=== PATIENT | male | born 1950 | race Caucasian/White ===

== ENCOUNTER 2018-02-23 06:12 | Inpatient (IN) | payer MEDICARE, OTHER ==
[~2018-02-23 06:12] MED LIST: MORPHINE SULFATE 15 MG TABLET.SA PO PRN; ROPIVACAINE HCL/PF 100 MG, EPINEPHrine 0.2 MG, KETOROLAC TROMETHAMINE 30 MG in NORMAL S... IJ PRN; TRANEXAMIC ACID 1,000 MG in NORMAL SALINE 100 ML IV PRN; ceFAZolin SODIUM 1 GM VIAL IV PRN
[2018-02-23] MEDS: RINGER'S SOLUTION,LACTATED 1,000 ML IV PRN ×2 (07:06→09:24)
--- NOTE | 2018-02-23 07:23 | ANES ---
Anesthesia Pre Procedure Eval Vitals/Labs: Last Vital Signs Temp 36.9 C 02/23/18 06:26 Pulse 77 02/23/18 06:26 Resp 16 02/23/18 06:26 BP 144/83 02/23/18 06:26 Pulse Ox 97 02/23/18 06:26 HOME MEDICATIONS acetaminophen 500 mg tablet 1,000 mg PO BID PRN tab 02/01/18 [Last Taken Unknown] amlodipine 5 mg tablet 5 mg PO DAILY 02/01/18 [Last Taken 02/23/18 05:30] losartan 100 mg-hydrochlorothiazide 12.5 mg tablet 1 tab PO DAILY 02/01/18 [Last Taken 02/23/18 05:30] metformin 500 mg tablet 500 mg PO BID 02/01/18 [Last Taken Unknown] metoprolol succinate ER 100 mg tablet,extended release 24 hr 100 mg PO DAILY 02/01/18 [Last Taken 02/23/18 05:30] pravastatin 40 mg tablet 40 mg PO DAILY 02/01/18 [Last Taken Unknown] Allergies/Adverse Reactions: Allergies Allergy/AdvReac Type Severity Reaction Status Date / Time terbinafine [From Lamisil] Allergy Intermediate Hives Verified 02/23/18 06:29 - Planned Procedure Planned Procedure: Arthroplasty Total Hip Cement/Non-Cement Medication List Reviewed:: Yes Allergies Verified: Yes Medical History (Last Reviewed 02/23/18 @ 07:22 by Tomy San CRNA) Diabetes Onset Date: Unknown Hypercholesterolemia Onset Date: Unknown Hypertension Onset Date: Unknown Surgical History (Last Reviewed 02/23/18 @ 07:22 by Tomy San CRNA) History of cataract extraction Onset Date: Unknown History of colonoscopy Onset Date: 12/2017 History of hernia surgery Onset Date: 1996 Status post total hip replacement, right Onset Date: 08/2016 Family History (Last Reviewed 02/23/18 @ 07:22 by Tomy San CRNA) Mother Cancer Sister Cancer Breast cancer Father - Family Anesthesia History Family History:: no untoward family reactions to anesthesia - Airway/Neck/Teeth Within Normal Limits:: Yes Teeth Condition: Intact Neck Exam: full range of motion, normal alignment Mallampatti Score: 2 Thyromental (T-M) distance: > 6 cm Mandibulo Hyoid distance: > 3 cm - Respiratory Respiratory: lungs clear, no respiratory distress Smoking Status: Former smoker Sleep Apnea currently treated: No Sleep Apnea by current assessment: No - Cardiovascular Patient History - Cardiac/Respiratory: Hypertension, Hyperlipidemia Tolerates Activity: Good Heart Sounds: S1 & S2, Regular - Anesthesia Assessment and Plan ASA Class: PS, II Anesthesia Type Plan: Spinal Planned difficult intubation/equipment available: No
[2018-02-23] MEDS ORDERED: ONDANSETRON HCL/PF 2 MG/ML VIAL IV PRN (09:38)
[2018-02-23] MEDS ORDERED: diphenhydrAMINE HCL 50 MG/ML VIAL IV PRN (09:38)
[2018-02-23] MEDS ORDERED: MAG HYDROX/ALUMINUM HYD/SIMETH 30 ML UDC PO PRN (09:38)
[2018-02-23] MEDS ORDERED: MAGNESIUM HYDROXIDE 30 ML UDC PO PRN (09:38)
[2018-02-23] MEDS ORDERED: ACETAMINOPHEN 500 MG TABLET PO PRN (09:38)
[2018-02-23] MEDS ORDERED: RINGER'S SOLUTION,LACTATED 1,000 ML IV PRN (09:38)
[2018-02-23] MEDS ORDERED: MORPHINE SULFATE 2 MG/ML DISP.SYRIN IV PRN (09:38)
--- NOTE | 2018-02-23 09:38 | OR ---
Operative Report - Dictated Report Narrative: Date: 02/23/2018 Preoperative diagnosis: Left hip degenerative joint disease. Postoperative diagnosis: Left hip degenerative joint disease. Procedure: Left Total hip arthroplasty. Surgeon: Carloz Trent M.D. Supervisor Plate Pasting: Jesus Fine PA-C (Jesus provided an essential set of skilled knowledgeable specialized skills that assisted with positioning, retraction, instrumentation, manipulation, closure of wounds, and dressings) Anesthesia: Spinal and local periarticular joint injection. Complications: None Specimens: Bone for disposal. Estimated blood loss: 100 milliliters. Retained implants: Depuy [place] size 7 femoral stem high offset. Size 56 millimeter outside diameter 3-hole Tillson Gription acetabular cup. 56 millimeter outside by 40 millimeter inside diameter highly cross-linked acetabular liner. 401 millimeter diameter 1.5 millimeter ceramic femoral head. Cancellous 6.5mm screw 30 millimeter length Indications: Mr. Lentz is a 67-year-old gentleman who has had long-standing left hip pain and arthrosis. This patient was followed in my clinic for period of time with significant complaints of left hip pain consistent with arthritic changes. He failed conservative measures including but not limited to activity modification, passage of time, medications, and other conservative measures. Patient wished to proceed with surgical treatment. The risks, benefits, and alternatives were discussed in clinic. The risks of , blood clots, bleeding, infection, nerve/tendon blood vessel/ injury, malposition of components, dislocation and/or instability of joint, intraoperative fracture, postoperative limited range of motion, persistent pain, failure of components, and need for additional procedures. Patient wished to proceed. Consent was obtained after answering all questions. Procedure: After marking the correct extremity on the floor, the patient was taken to the operating room. A timeout was performed. IV antibiotics consisting of Ancef were administered prior to the procedure. A spinal anesthetic was induced by anesthesia. A Navas catheter was inserted. The patient was then transitioned to a lateral position on a well-padded pegboard. An axillary roll was placed. The head was in neutral position. The non-oper ative down leg was well-padded with SCD and NALDO hose in place. The arms were supported and padded to protect from any undue pressure on the bony prominences and nerves. A well-padded anterior and posterior pelvic and chest posts were secured in order to maintain a stable position of the pelvis. This was placed so that the pelvis was perpendicular to the floor. The body was in line with the pelvis. Once it was felt that we had protected all the bony prominences and the patient was well secured with a safety belt as well, the leg was pre- scrubbed with alcohol, prepped and draped in a standard sterile fashion. A standard anterior lateral hip incision was marked out over the greater trochanter. Ioban drapes were then placed. The skin incision was then made. Sharp dissection with a scalpel utilizing cautery for hemostasis was carried out down to the gluteus and iliotibial band fascia. This was split in line with the skin incision. The greater trochanter bursa was excised. The anterior and posterior margins of the abductor tendon were identified. The anterior 1/2-1/3 of the tendon was tagged and reflected off the greater trochanter leaving a sleeve of tendon for repair at the completion of the case. This exposed the underlying hip joint capsule. A limb length stitch was placed in the skin and referencedd off a andreia on the greater trochanter for evaluation of intraope rative limb lengths. An inverted T-type capsulotomy was made extending this up to the brim of the acetabulum. Using Homans to assist with elevation of the soft tissues off the anterior, superior, and inferior aspects of the femoral neck, the hip was then placed in a figure 4 position and the femoral head was dislocated. With the leg in an externally rotated and adducted position, the cutting flag was utilized in order to andreia for a standard femoral neck cut approximately a fingerbreadth above the level of the lesser trochanter. This was done with reference to pre-operative films and overall alignment. This was done while protecting the surrounding soft tissues with Homans. The femoral head was then removed and sized for guidance on preparation of the acetabulum. It was noted that there was loss of articular cartilage on both the femoral head and weightbearing portions of the acetabulum. We then returned the leg to the table and turned our attention to the acetabulum. While protecting the surrounding soft tissues, the labrum and remaining tissue in the fovea were excised using a scalpel and cautery. A series of reamers up to size 56 millimeter were utilized to prepare the acetabulum. The final reamer had good purchase and exposed the bleeding subchondral bone. The acetabulum was then thoroughly irrigated ensuring that all bony and cartilaginous materials were removed, and the final acetabular shell was impacted into place. This was placed in approximately 45 degrees of abduction and 20 degrees of anteversion utilizing the outrigger and body axis for alignment. This had a good press fit. 1 6.5mm cancellous screw was placed in the superior posterior quadrant of the acetabulum. The shell was then thoroughly irrigated and the final polyethylene was impacted into place ensuring that it seated completely. This was then protected with a sponge while we returned our attention to the femur. With the leg in a figure 4 position, utilizing Homans for soft tissue protection, a box cutting osteotome, followed by Charnley awl, followed by serial reamers and broaches were utilized in order to prepare the femur. It was found that a size 7 broach gave good axial and rotational stability. The calcar reamer was utilized in order to clean up the cut edges. The proximal femur was visualized to ensure that there were no signs of fracture. A series of heads an d necks were trialed. It was found that a high offset neck and a + 1.5 femoral head gave good overall stability. There was minimal longitudinal instability. With the leg in the position of sleep, the femoral head was well covered. Hip range of motion was able to reach full extension and external rotation to greater than 75 degrees prior to impingement along the posterior acetabulum. The hip was able to be flexed to greater than 90 degrees with internal rotation greater than 60 degrees prior to anterior impingement. The limb lengths were near equal based on comparison to the contralateral side and the prior placed limb length stitch. At this point it was felt these were the appropriately sized femoral components as well as neck and femoral head. The trial implants were removed. The femur was thoroughly irrigated. The final implants were impacted into place, and the hip was reduced. After ensuring that there was no damage to the proximal femur, the standard periarticular joint injection of ropivacaine, Toradol, and epinephrine were injected into the joint capsule and surrounding soft tissues. Anesthesia then administered intravenous tranexamic acid. The capsule was repa ired with a single interrupted #1 Vicryl. The abductor tendon was repaired to the greater trochanter utilizing #5 Ethibond through drill holes. This was oversewn with #1 Vicryl. The fascia was closed with interrupted #1 Vicryl. The wounds were thoroughly irrigated as we closed in layers. The deep and subcutaneous fat layers were closed with 0 and 3-0 Vicryl respectively. The subcutaneous tissue was closed with a running 3-0 Vicryl and the skin with leslie. All sponge, needle, blade, and instrument counts were correct prior to closing the wounds. Sterile dressings consisting of Xeroform, 4 x 4's, and tape were applied. The patient was awoken and transferred to her hospital bed and then to the postanesthesia care unit in stable condition. Postoperative condition: The plan is to admit to the medical/surgical inpatient floor postoperatively. There will be a projected 1 to 3 day hospital stay. Postoperatively 24 hours of IV antibiotics, pain control, physical therapy, occupational therapy, and medical comanagement will be utilized. Patient will be weightbearing as tolerated with anterior hip precautions. Postoperative films will be obtained in the recovery room.
--- NOTE | 2018-02-23 10:23 | ANES ---
Post Anesthesia Discharge - Transfer of Care Transfer of Care handoff given to nurse: Yes - Discharge from PACU Discharge from PACU when meets criteria: Yes
[2018-02-23] MEDS: KETOROLAC TROMETHAMINE 15 MG/ML VIAL IV SCH ×3 (10:43→21:04)
[2018-02-23] MEDS: ceFAZolin SODIUM 1 GM in DEXTROSE 5 % IN WATER 100 ML IV SCH ×6 (11:50→23:20)
[2018-02-23] MEDS: oxyCODONE HCL/ACETAMINOPHEN 1 TAB TABLET PO PRN (14:05)
[2018-02-23] MEDS: metFORMIN HCL 500 MG TABLET PO SCH (17:21)
--- NOTE | 2018-02-23 18:46 | ANES ---
Post Anesthesia Assessment - Vital Signs Vitals: Last Vital Signs Temp 36.6 C 02/23/18 16:23 Pulse 82 02/23/18 16:23 Resp 16 02/23/18 16:23 BP 162/92 H 02/23/18 16:23 Pulse Ox 99 02/23/18 16:23 Airway Patency: Normal - Mental Status Level Of Consciousness: Awake - Pain Level Pain Score: 0 - N/V Assessment Nausea/Vomiting Presence: None Dehydration:: No
[2018-02-23] MEDS: MORPHINE SULFATE 15 MG TABLET.SA PO SCH (21:03)
[2018-02-23] MEDS: SIMVASTATIN 20 MG TABLET PO SCH (21:03)
[2018-02-23] MEDS: SENNOSIDES/DOCUSATE SODIUM 1 TAB TABLET PO SCH (21:04)
[2018-02-23] MEDS: ZOLPIDEM TARTRATE 5 MG TABLET PO PRN (23:18)
[2018-02-24] MEDS: oxyCODONE HCL/ACETAMINOPHEN 1 TAB TABLET PO PRN ×2 (01:57→14:12)
[2018-02-24] MEDS: KETOROLAC TROMETHAMINE 15 MG/ML VIAL IV SCH ×4 (03:13→20:49)
[2018-02-24 06:17] LABS: Hematocrit 31.8 % (42.0-52.0); Hemoglobin 10.9 gm/dL (13.5-18.0); Mean Cell Volume 97.8 fl (78-100); Mean Corpuscular Hemoglobin 33.5 pg (27-31); Mean Corpuscular Hgb Conc 34.3 g/dl (32-36); Mean Platelet Volume 9.7 fl (8-11.3); Platelet Count 172 K/mm3 (150-450); Red Blood Count 3.25 M/mm3 (4.7-6.0); Red Cell Distribution Width 13.1 % (11.5-14.0); White Blood Count 5.6 K/mm3 (4.0-10.5)
[2018-02-24 06:28] LABS: Anion Gap 12.1 mmol/L (6.8-13.8); BUN/Creatinine Ratio 16.2 (9.0-21.6); Calcium * 8.6 mg/dL (7.9-10.9); Carbon Dioxide 27.2 mmol/L (24-32.6); Potassium 4.3 mmol/L (3.4-4.6)
[2018-02-24] MEDS: LOSARTAN POTASSIUM 50 MG TABLET PO SCH (08:21)
[2018-02-24] MEDS: MORPHINE SULFATE 15 MG TABLET.SA PO SCH ×2 (08:21→20:48)
[2018-02-24] MEDS: METOPROLOL SUCCINATE 100 MG TABLET.SA PO SCH (08:21)
[2018-02-24] MEDS: HYDROCHLOROTHIAZIDE 12.5 MG CAPSULE PO SCH (08:23)
[2018-02-24] MEDS: metFORMIN HCL 500 MG TABLET PO SCH ×2 (08:23→17:08)
[2018-02-24] MEDS: amLODIPine BESYLATE 5 MG TABLET PO SCH (08:23)
[2018-02-24] MEDS: ENOXAPARIN SODIUM 40 MG/0.4 ML SYRG SC SCH (08:25)
--- NOTE | 2018-02-24 10:44 | PN ---
Subjective - Date and Time Seen Date: 02/24/18 Time: 10:41 Subjective Narrative: Subjective: Reports no significant concerns. Was able to walk in the luna with therapy. Pain is well-controlled. Voiding without any complications. Tolerating by mouth intake. Denies any nausea or vomiting. Denies calf pain. Slept well. Physical exam: Alert and oriented to person, place and time Left lower extremity: Palpable dorsalis pedis pulse. Sensation grossly intact to light touch. Dressings clean and dry. Able to flex and extend ankle and toes. No excessive drainage. Calf and thigh are soft and nontender. Assessment: Postop day 1 status post left total hip arthroplasty. Plan: Due to the need for pain control, post-operative limited mobility, protection of the surgical site and joint, monitoring of the wound, and the management of chronic medical conditions, he requires continued inpatient care. Continue with physical and occupational therapy weightbearing as tolerated. Continue with anticoagulation. 24 hours postoperative prophylactic antibiotics. Pain control with goal to rely on oral medications. Continue bowel regimen. Will need 6 weeks with walker or assitive device to protect joint while ambulating during the recovery process. Discharge planning - based on his living situation and limited assistance at home as well as the need for continued therapy we are evaluating him for placement in the skilled therapy upon discharge once he meets his required 3 midnights. Discontinue Navas catheter. Objective - Vitals Vitals: Last Vital Signs Temp 37.1 C 02/24/18 08:15 Pulse 85 02/24/18 08:23 Resp 16 02/24/18 08:15 BP 119/64 02/24/18 08:23 Pulse Ox 95 02/24/18 08:15 - Abnormal Lab Findings Abnormal Lab Findings: Abnormal Lab Results 02/24/18 02/24/18 Range/Units 06:00 06:00 RBC 3.25 L (4.7-6.0) M/mm3 Hgb 10.9 L (13.5-18.0) gm/dL Hct 31.8 L (42.0-52.0) % MCH 33.5 H (27-31) pg Random Glucose 117 H (70-110) mg/dL Cauti Physician Documentation - Urinary Catheter Management Urethral (Navas) Date of Insertion: 02/23/18 Time of Insertion: 08:00 Date of Removal: 11/10/18 Time of Removal: 08:30 Assessment/Plan - Problems/Diagnosis (1) Status post total hip replacement, left Problem: Acute (2) Acute blood loss anemia Problem: Acute (3) Diabetes mellitus Problem: Chronic Qualifiers: Diabetes mellitus type: type 2 (4) Hypertension Problem: Chronic (5) Hyperlipidemia Problem: Chronic
[2018-02-24] MEDS: SENNOSIDES/DOCUSATE SODIUM 1 TAB TABLET PO SCH (20:48)
[2018-02-24] MEDS: SIMVASTATIN 20 MG TABLET PO SCH (20:49)
[2018-02-25] MEDS: ZOLPIDEM TARTRATE 5 MG TABLET PO PRN ×2 (00:27→22:53)
[2018-02-25] MEDS: KETOROLAC TROMETHAMINE 15 MG/ML VIAL IV SCH (03:49)
[2018-02-25] MEDS: oxyCODONE HCL/ACETAMINOPHEN 1 TAB TABLET PO PRN ×3 (06:56→22:57)
[2018-02-25] MEDS: METOPROLOL SUCCINATE 100 MG TABLET.SA PO SCH (08:23)
[2018-02-25] MEDS: metFORMIN HCL 500 MG TABLET PO SCH ×2 (08:23→17:16)
[2018-02-25] MEDS: LOSARTAN POTASSIUM 50 MG TABLET PO SCH (08:24)
[2018-02-25] MEDS: amLODIPine BESYLATE 5 MG TABLET PO SCH (08:24)
[2018-02-25] MEDS: HYDROCHLOROTHIAZIDE 12.5 MG CAPSULE PO SCH (08:24)
[2018-02-25] MEDS: ENOXAPARIN SODIUM 40 MG/0.4 ML SYRG SC SCH (08:26)
[2018-02-25] MEDS: MORPHINE SULFATE 15 MG TABLET.SA PO SCH ×2 (08:34→20:15)
--- NOTE | 2018-02-25 15:29 | PN ---
Subjective - Date and Time Seen Date: 02/25/18 Time: 15:28 Subjective Narrative: Subjective: Reports no significant concerns. Was able to walk in the luna with therapy. Pain is well-controlled. Slept well. Physical exam: Alert and oriented to person, place and time Left lower extremity: Palpable dorsalis pedis pulse. Sensation grossly intact to light touch. Dressings clean and dry. Able to flex and extend ankle and toes. No excessive drainage. Calf and thigh are soft and nontender. Assessment: Postop day 2 status post left total hip arthroplasty. Plan: Due to the need for pain control, post-operative limited mobility, protection of the surgical site and joint, monitoring of the wound, and the management of chronic medical conditions, he requires continued inpatient care. Continue with physical and occupational therapy weightbearing as tolerated. Continue with anticoagulation. Pain controlled with minimal breakthrough medications. Continue bowel regimen. Will need 6 weeks with walker or assitive device to protect joint while ambulating during the recovery process. Discharge planning - based on his living situation and limited assistance at home as well as the need for continued therapy we are evaluating him for placement in the skilled therapy tomorrow. Objective - Vitals Vitals: Last Vital Signs Temp 36.9 C 02/25/18 13:58 Pulse 79 02/25/18 13:58 Resp 18 02/25/18 13:58 BP 123/66 02/25/18 13:58 Pulse Ox 96 02/25/18 13:58 Cauti Physician Documentation - Urinary Catheter Management Urethral (Navas) Date of Insertion: 02/23/18 Time of Insertion: 08:00 Date of Removal: 02/24/18 Time of Removal: 08:30 Assessment/Plan - Problems/Diagnosis (1) Status post total hip replacement, left Problem: Acute (2) Acute blood loss anemia Problem: Acute (3) Diabetes mellitus Problem: Chronic Qualifiers: Diabetes mellitus type: type 2 (4) Hypertension Problem: Chronic (5) Hyperlipidemia Problem: Chronic
[2018-02-25] MEDS: SENNOSIDES/DOCUSATE SODIUM 1 TAB TABLET PO SCH (20:15)
[2018-02-25] MEDS: SIMVASTATIN 20 MG TABLET PO SCH (20:16)
[2018-02-26] MEDS: ENOXAPARIN SODIUM 40 MG/0.4 ML SYRG SC SCH (08:20)
[2018-02-26] MEDS: metFORMIN HCL 500 MG TABLET PO SCH (08:20)
[2018-02-26] MEDS: LOSARTAN POTASSIUM 50 MG TABLET PO SCH (08:20)
[2018-02-26] MEDS: HYDROCHLOROTHIAZIDE 12.5 MG CAPSULE PO SCH (08:21)
[2018-02-26] MEDS: amLODIPine BESYLATE 5 MG TABLET PO SCH (08:21)
[2018-02-26] MEDS: METOPROLOL SUCCINATE 100 MG TABLET.SA PO SCH (08:21)
[2018-02-26] MEDS: MORPHINE SULFATE 15 MG TABLET.SA PO SCH (08:24)
--- NOTE | 2018-02-26 10:16 | DS ---
(1) Status post total hip replacement, left Problem: Acute (2) Acute blood loss anemia Problem: Acute (3) Diabetes mellitus Problem: Chronic Qualifiers: Diabetes mellitus type: type 2 (4) Hypertension Problem: Chronic (5) Hyperlipidemia Problem: Chronic Description of Stay: Mr. Lentz was admitted to the floor after undergoing left total hip arthroplasty. Tolerated this well. Was admitted to the floor postoperatively for 24 hours of IV antibiotics, pain control, medical comanagement, and occupational and physical therapy. OT and PT were consulted to assist with activities of daily living and ambulation. Was made weightbearing as tolerated with anterior hip precautions. Pain was initially controlled with IV regimen. This was transitioned to oral once tolerating a by mouth intake. Was resumed on home diet and medications. Had a Navas catheter inserted and the operating room which was discontinued on postoperative day 1. Lovenox SCD and NALDO hose were utilized for DVT prophylaxis. Vital signs remained stable to the hospital course. Serial labs were obtained which showed a final hemoglobin of 10.9 grams. BMP was reviewed and was stable. Physical examination throughout the hospital course showed an extremity that had sensation that was intact to light touch, palpable pulses, a benign wound, motor intact to the toes, ankle, and knee. He was somewhat slow to progress with therapy as well as due to the fact that he has limited assistance at home and thus the plan is to continue with amy levine at a snf facility. He is felt to be stable for this today. Instructions: Continue with weightbearing as tolerated and anterior hip precautions with no active abduction. Do not bathe or soak the wound. Keep the wound clean and dry and cover with dry gauze and tape. Change every 2-3 days as needed if there is any drainage. Cover wound while showering. Continue with physical therapy. Resume home diet. Report any fever over 101.5 Fahrenheit, uncontrolled pain, increased drainage, foul odor of drainage, new or increased calf pain or shortness of breath, or any other significant complaints. A 325mg dialy aspirin will be started after finishing anticoagulation if not allergic. Continue with NALDO hose on the operative extremity until instructed otherwise. No driving unt il instructed otherwise. Follow up in approximately 10-14 days. Procedures Performed: see notes below List Procedures: Left total hip arthroplasty Results and Findings: Lab Pending Results 02/24/18 06:00: WBC 5.6, RBC 3.25 L, Hgb 10.9 L, Hct 31.8 L, MCV 97.8, MCH 33.5 H, MCHC 34.3, RDW 13.1, Plt Count 172, MPV 9.7 02/24/18 06:00: Sodium 137, Plasma Sodium 137, Potassium 4.3 D, Chloride 102, Carbon Dioxide 27.2, Anion Gap 12.1, BUN 19 D, Creatinine 1.17, Est GFR (Non-Af Amer) 66, BUN/Creatinine Ratio 16.2, Random Glucose 117 H, Calcium 8.6 Discharge Location: [facility] Disposition: [facility] Condition: Good Level of Care: SNF Discharge Activity: Weight bearing, Other - anterior hip precautions with no active abduction Discharge Diet: Consistent carbs Snf Therapy: Physicial Therapy Additional Patient Instructions (free text): Follow up with Orthopedic Dr. Trent 03/13 at 9:45am. Prescriptions (Any new or edited meds): Enoxaparin Sodium [Lovenox] 40 mg SC Q24H #7 disp.syrin Morphine Sulfate [Ms Contin] 15 mg PO Q12H #20 tablet. oxyCODONE HCL/ACETAMINOPHEN [Percocet 5 MG/325 MG] 2 tab PO Q4H PRN #40 tablet PRN Reason: Moderate Pain (Pain Scale 4-6) Sennosides/Docusate Sodium [Senokot-S] 2 tab PO HS #60 tablet Complete Home Medications List: Complete Home Medication List: amlodipine 5 mg tablet 5 mg PO DAILY 02/01/18 losartan 100 mg-hydrochlorothiazide 12.5 mg tablet 1 tab PO DAILY 02/01/18 metformin 500 mg tablet 500 mg PO BID 02/01/18 metoprolol succinate ER 100 mg tablet,extended release 24 hr 100 mg PO DAILY 02/01/18 pravastatin 40 mg tablet 40 mg PO DAILY 02/01/18 Dextrin [Fiber] 350 gm PO QAM 02/23/18 Enoxaparin Sodium [Lovenox] 40 mg SC Q24H #7 disp.syrin 02/26/18 Morphine Sulfate [Ms Contin] 15 mg PO Q12H #20 tablet.sa 02/26/18 Sennosides/Docusate Sodium [Senokot-S] 2 tab PO HS #60 tablet 02/26/18 oxyCODONE HCL/ACETAMINOPHEN [Percocet 5 MG/325 MG] 2 tab PO Q4H PRN #40 tablet 02/26/18
[2018-02-26] MEDS: oxyCODONE HCL/ACETAMINOPHEN 1 TAB TABLET PO PRN (10:42)
[2018-02-26 11:52] VITALS: BP 117/64
== END 2018-02-26 11:51 | DRG 470 ==
LOC: MS 06:12
PROVIDERS: ADMIT Orthopaedic Surgery; ATTEND Orthopaedic Surgery
DX: I10 Essential (primary) hypertension; E11.9 Type 2 diabetes mellitus without complications; E78.00 Pure hypercholesterolemia, unspecified; Z87.19 Personal history of other diseases of the digestive system; Z96.641 Presence of right artificial hip joint; Z79.84 Long term (current) use of oral hypoglycemic drugs; M16.12 Unilateral primary osteoarthritis, left hip; G47.00 Insomnia, unspecified; Z88.8 Allergy status to other drugs, medicaments and biological substances; D62 Acute posthemorrhagic anemia
CPT/HCPCS: 36415; 73502; 80048; 85027; 97110; 97116; 97161; 97165; 97535